=== PATIENT | female | born 1960 | race Caucasian/White ===

== ENCOUNTER 2016-12-12 19:03 | Inpatient (IN) | payer MEDICARE, OTHER ==
[~2016-12-12] VITALS: Ht 160 cm; Wt 79.4 kg
[2016-12-12] MEDS ORDERED: MELO-105 PO (20:00)
[2016-12-12] MEDS ORDERED: CARI250T9 PO (20:00)
[2016-12-12] MEDS ORDERED: ASPI81TA31 PO (20:00)
[2016-12-12] MEDS ORDERED: ATOR40TA PO (20:00)
--- NOTE | 2016-12-13 02:24 | NUR ---
RECEIVED A 55 YR OLD FROM [facility] WITH ADMITTING DIAGNOSIS OF INTRACRANIAL INFARCT. HAS HISTORY OF HYPERLIPIDEMIA, CVA WITH LEFT SIDE WEAKNESS, CAD AND CHRONIC BACK PAINS. AAOX4 COLE'S BUT WITH LEFT SIDE WEAKNESS. LEFT UPPER /LEFT LOWER EXTREMITY WEAK. LUNGS CLEAR. AMBULATE TO THE BATHROOM WITH ASSISTANCE. BM NOTED THIS SHIFT. VITAL SIGNS TAKEN AND RECORDED. BP 132/85 HR 79 RESP 18 TEMP 97.6 PULSE OX 945% RA. SKIN INTACT. DENIES ANY PAIN NOR ANY DISCOMFORT. FALL RISK. SEEN BY DR. POTTER. WILL MONITOR PATIENT. VOIDING WELL.
--- NOTE | 2016-12-13 07:00 | NUR ---
SBAR shift report received. Pt. assessed with no acute distress observed at this time. Left side lower and upper extremity weakness noted. Fall and aspiration precautions implemented. Call light within reach. Will continue to monitor.
[2016-12-13 07:44] LABS: BASOPHILS % (AUTO) 0.4 % (0.0-2.0); EOSINOPHILS # (AUTO) 0.2 K/uL (0.0-0.7); EOSINOPHILS % (AUTO) 1.8 % (0.0-7.0); HEMATOCRIT 39.5 % (37-47); HEMOGLOBIN 12.9 G/DL (12.0-16.0); LYMPHOCYTES # (AUTO) 3.1 K/UL (0.8-4.8); LYMPHOCYTES % (AUTO) 34.7 % (20.5-51.5); MEAN CORPUSCULAR HEMOGLOBIN 29.2 UUG (27.0-31.0); MEAN CORPUSCULAR HGB CONC 33 g/dL (32.0-37.0); MONOCYTES # (AUTO) 0.8 K/UL (0.1-1.30); MONOCYTES % (AUTO) 8.4 % (0.0-11.0); NEUTROPHILS # (AUTO) 4.8 K/UL (1.8-8.9); NEUTROPHILS % (AUTO) 54.7 % (38.5-71.5); PLATELET COUNT (AUTO) 212 K/UL (150-450); RED BLOOD CELL COUNT(AUTO) 4.43 MIL/UL (4.2-5.4); WHITE BLOOD COUNT (AUTO) 8.9 K/UL (4.0-11.2)
[2016-12-13 08:02] LABS: THYROID STIMULATING HORMONE 6.254 mIU/mL (0.358-3.740)
[2016-12-13 08:16] LABS: BILIRUBIN,TOTAL 0.4 mg/dL (0.2-1.0); CREATININE 0.9 mg/dL (0.6-1.3); MAGNESIUM 2.1 mg/dL (1.8-2.4); PHOSPHOROUS 5.1 mg/dL (2.5-4.9); POTASSIUM 4.4 mmol/L (3.5-5.1); TOTAL PROTEIN, SERUM 6.8 g/dL (6.4-8.2)
[2016-12-13 08:22] VITALS: BP 121/76
--- NOTE | 2016-12-13 18:39 | NUR ---
Pt. is alert, awake, and oriented visiting with family at the bedside. Pt has been compliant with both therapies and medication administration during this shift. A prophylaxis order for Levonox to begin tomorrow morning at 0900 hrs has been placed in the EMAR from Dr. Turner. V/S stable, skin intact with 2 bruises noted on left hip from fall while staying at [facility]. No distress noted. Clear breath sounds on RA. No change in NIH scale. Fall and aspiration precautions in place. Call light within reach. Will continue to monitor and endorse details to night staff.
[2016-12-13 20:51] VITALS: BP 133/66
--- NOTE | 2016-12-14 05:19 | NUR ---
AAOX4 OOB TO THE BR WITH WALKER. VOIDING WELL. COMPLIANT WITH MEDS. DENIES ANY PAIN NOR ANY DISCOMFORT. VITAL SIGNS STABLE, WILL MONITOR PATIENT. NEEDS ATTENDED.
--- NOTE | 2016-12-14 07:10 | NUR ---
While receiving report Pt stated difficulty breathing. Pt sat up in high fowlers position, assessed, V/S taken BP 111/72, 71, 93% O2 RA, clear lung sounds BL, pain described as a 2-3/10 non-radiating, dull pain. Pt states having had this type of pain before and it resolving on its own. Pt placed on 2L O2 NC once applied, v/s reassessed to be 99% o2 sat. 108/64, and hr 68. Pt remained sitting up right, with no change in LOC, communication, or appearance. notified. Will continue to monitor.
--- NOTE | 2016-12-14 07:50 | NUR ---
Pt. reassessed v/s 108/64, 68 hr, 99% o2 on 2L NC. Pt states previous pain subsiding, and ease of breathing returned. Pt sitting up right requesting assistance to use mouth wash in order to prepare for breakfast. Dr. Turner contacted, ordered CXR, EKG, CBC, CMP, Mg, Phosphorus, and Troponin labs to be done. Call light within reach, will continue to monitor progress.
[2016-12-14 08:50] VITALS: BP 105/70
[2016-12-14 09:46] LABS: BASOPHILS % (AUTO) 0.3 % (0.0-2.0); EOSINOPHILS # (AUTO) 0.2 K/uL (0.0-0.7); EOSINOPHILS % (AUTO) 2.1 % (0.0-7.0); HEMATOCRIT 38.9 % (37-47); HEMOGLOBIN 12.7 G/DL (12.0-16.0); LYMPHOCYTES # (AUTO) 2.7 K/UL (0.8-4.8); LYMPHOCYTES % (AUTO) 33.2 % (20.5-51.5); MEAN CORPUSCULAR HEMOGLOBIN 28.9 UUG (27.0-31.0); MEAN CORPUSCULAR HGB CONC 33 g/dL (32.0-37.0); MEAN CORPUSCULAR VOLUME 88.6 FL (81.0-99.0); MONOCYTES # (AUTO) 0.5 K/UL (0.1-1.30); MONOCYTES % (AUTO) 6.6 % (0.0-11.0); NEUTROPHILS # (AUTO) 4.8 K/UL (1.8-8.9); NEUTROPHILS % (AUTO) 57.8 % (38.5-71.5); PLATELET COUNT (AUTO) 192 K/UL (150-450); RED BLOOD CELL COUNT(AUTO) 4.39 MIL/UL (4.2-5.4); WHITE BLOOD COUNT (AUTO) 8.2 K/UL (4.0-11.2)
[2016-12-14 09:47] LABS: BILIRUBIN,TOTAL 0.4 mg/dL (0.2-1.0); CREATININE 0.9 mg/dL (0.6-1.3); PHOSPHOROUS 4.4 mg/dL (2.5-4.9); TOTAL PROTEIN, SERUM 6.7 g/dL (6.4-8.2)
--- NOTE | 2016-12-14 17:00 | NUR ---
Pt. has remained free from pain and any acute distress throughout this shift. V/s currently reassessed to read BP 105/67, pulse 74, 02 sat. on 2L NC 99%. No complaints of dizziness or difficulty breathing. Switched NC to O2 mask per pt request. Will continue to monitor.
--- NOTE | 2016-12-14 18:57 | NUR ---
Pt assisted to restroom, extended NC applied for ambulation. Pt agreed to keep extended NC on r/t BRP. No apparent distress noted at this time. Call light within reach. All fall precautions in place. Will endorse pt condition and details to oncoming database coordinator.
--- NOTE | 2016-12-14 19:30 | NUR ---
RECEIVED PATIENT LAYING COMFORTABLY IN BED. NO ACUTE DISTRESS NOTED. NO C/O SOB OR CHEST PAIN. PATIENT IS ALERT AND ORIENTED X 4. BILATERAL EYES BRISK PERRLA +2. NOTED LAZY EYE ON THE LEFT EYE. RIGHT EYE CATARACT SURGERY 5-6 YEARS AGO. SLIGHTLY SLURRED SPEECH. ON O2 2L NC. SKIN CHECK, NOTED BRUISING ON THE RIGHT LOWER ABDOMEN. NOTED LEFT SIDED WEAKNESS. PEDAL PULSE PRESENT AND STRONG. WALKER AT BEDSIDE. INSTRUCTED PATIENT TO USE CALL LIGHT WHEN IN NEED OF ASSISTANCE. VERBALIZED UNDERSTANDING. SAFETY INITIATED. CALL LIGHT WITHIN REACH. WILL CONTINUE TO MONITOR.
[2016-12-14 19:53] VITALS: BP 104/68
--- NOTE | 2016-12-15 06:26 | NUR ---
PATIENT SLEPT INTERMITTENTLY T/O THE NIGHT. NO ACUTE DISTRESS NOTED. NO C/O PAIN, SOB OR CHEST PAIN. PATIENT 02 2L NC. ASSISTED PATIENT TWICE TO THE BATHROOM, TOLERATED WELL. SAFETY AND COMFORT MAINTAINED T/O SHIFT. ALL MEDS GIVEN ORDERED. ALL NEEDS MET.
[2016-12-15 07:10] VITALS: BP 122/70
--- NOTE | 2016-12-15 07:45 | NUR ---
Pt report received. Pt assisted to bathroom x1 assist with walker as well. Pt stated being sad about dx and slow, unpredictable progress. All safety and comfort measures applied. Returned to bed, call light within reach. Will continue to monitor.
--- NOTE | 2016-12-15 10:43 | NUR ---
Pt. displays no s/s of distress this shift. Tolerated well exercise activities instructed with OT and PT this morning. O2 sat upon returning from therapies reads 99%, so 2L NC decreased to 1L NC. Will continue to monitor. Stroke educations discussed with Pt and handout teaching material provided at bedside. drug safety coordinator Sunni visited with Pt for consult. Pt requested to rest at this time. All safety and comfort needs met.
--- NOTE | 2016-12-15 19:06 | NUR ---
Pt continues to show no s/s of any distress on this shift. Sleeping comfortably with 2L O2 via NC. Call light within reach. Will continue to monitor and endorse status to grain trimmer.
--- NOTE | 2016-12-15 20:00 | NUR ---
Received patient AAOx4. OOB to chair when received.with O2 @1L via nasal cannula. Vital signs taken and recorded. BP 116/63 HR 62 Resp 18 Temp 97.9 pulse Ox 94%. Needs attended. Voiding without any difficulty. Tolerated po meds well. Will monitor patient. Assisted back to bed. Fall precautions maintained. Bed alarm on. No acute distress noted. Call cruz within reach.
[2016-12-15 20:25] VITALS: BP 116/63
--- NOTE | 2016-12-16 06:02 | NUR ---
QUIET NIGHT. SLEPT WELL. NO ACUTE DISTRESS NOTED. OOB TO THE BR WITH STANDBY ASSIST. VOIDING WELL. DENIES ANY PAIN NOR ANY DISCOMFORT.
--- NOTE | 2016-12-16 07:42 | NUR ---
REPORT RECEIVED FROM TEMPERATURE REGULATOR NURSE, PATIENT NOTED RESTING IN BED WITH TOWEL ON FOREHEAD, COMPLAINTS OF HEADACHE, NO SIGNS OF DISTRESS NOTED, CALL LIGHT IN REACH, BED LOCKED AND IN LOWEST POSITION
[2016-12-16 08:13] VITALS: BP 112/69
--- NOTE | 2016-12-16 19:21 | NUR ---
TWO BOTTLES OF WINE REMOVED FROM PATIENTS ROOM AND PLACED IN LOCKED MEDICATION ROOM. NO COMPLAINTS OF PAIN AT THIS TIME, NO SIGNS OF DISTRESS, FAMILY VISITING PATIENT AT THIS TIME, SBAR GIVEN TO CAN CLEANER NURSE
--- NOTE | 2016-12-16 20:00 | NUR ---
AAOX4. KELSEY'S AMBULATES TO THE BR WITH WALKER . VOIDING WITHOUT DIFFICULTY. FAMILY AT BEDSIDE. PATIENT'S BIRTHDAY TODAY. IN GOOD SPIRITS.NEEDS ATTENDED. DENIES ANY PAIN AT THIS TIME.
[2016-12-16 20:39] VITALS: BP 128/72
--- NOTE | 2016-12-17 06:01 | NUR ---
oob to the bathroom with walker. voiding well. no BM noted this shift. kept comfortable. sleep at long intervals. no complaints so far. Tolerated po meds well.
[2016-12-17 07:40] VITALS: BP 102/55
--- NOTE | 2016-12-17 13:51 | NUR ---
Interdisciplinary Rehab Summary
[2016-12-17 15:39] LABS: *BILIRUBIN,URIN NEGATIVE (NEGATIVE); *BLOOD, URINE NEGATIVE (NEGATIVE); *COLOR,URINE YELLOW (YELLOW); *KETONES,URINE NEGATIVE (NEGATIVE); *PROTEIN,URINE NEGATIVE (NEGATIVE); *UROBILINOGEN,URINE 0.2 E.U./dl (NORMAL); LEUKOCYTE ESTERASE ,URINE NEGATIVE (NEGATIVE); NITRITE, URINE NEGATIVE (NEGATIVE); UGLUCOSE NEGATIVE (NEGATIVE)
[2016-12-17 16:05] LABS: *CLARITY,URINE SLIGHTLY HAZY (CLEAR)
[2016-12-17 16:08] LABS: BACTERIA,URINE MANY /HPF (NONE SEEN); SQUAMOUS EPITHELIAL CELL,UR FEW /HPF (NONE SEEN)
--- NOTE | 2016-12-17 18:54 | NUR ---
PATIENT SITTING UP IN BED WITH FAMILY AT BED SIDE, NO COMPLAINTS OF PAIN NOTED, NO SIGNS OF DISTRESS, CALL LIGHT IN REACH, BED LOCKED AND IN LOWEST POSITION
--- NOTE | 2016-12-17 19:53 | NUR ---
Received pt on bed alert, oriented x3. Family at bedside during this time. Able to make needs known. No acute distress noted. No complaints of pain or discomfort. No SOB. On O2 2L via nasal cannula. Vital signs stable, BP 105/61, HR 65, RR 18, temp 98.4, O2 sat 93%. Fall precautions observed. Bed alarm on. Call light within reach. Encouraged to verbalize needs and concerns. All needs anticipated.
[2016-12-17 20:07] VITALS: BP 105/61
--- NOTE | 2016-12-18 05:44 | NUR ---
Pt slept comfortably throughout the shift. Assisted to the bathroom x2, remains free of falls. No complaints of pain. No episodes of desaturation. Call light within reach. All needs attended.
--- NOTE | 2016-12-18 07:50 | NUR ---
Received patient awake alert and oriented. Assisted patient to bathroom. Morning care done. No complaints of pain or discomfort. Encouraged to continue O2 at 2lmp but patient said she will after her breakfast.
[2016-12-18 08:48] VITALS: BP 108/67
--- NOTE | 2016-12-18 14:00 | NUR ---
Patient resting in bed with family at bed side. On O2 at 2LPM. Instructed and demonstrated use of incentive spirometer.
--- NOTE | 2016-12-18 19:40 | NUR ---
Received pt on bed asleep. Breathing even and unlabored with normal respirations. No apparent distress noted. Call light within reach. Safety precautions observed. Will continue to monitor.
--- NOTE | 2016-12-18 20:30 | NUR ---
Pt. resting in bed comfortably. All due meds given as ordered and well tolerated. Vital signs stable, BP 111/69, HR 72, RR 20, temp 98.1, o2 sat 94%. On o2 2LPM. No signs of distress noted. Will continue to monitor.
[2016-12-18 21:31] VITALS: BP 111/69
--- NOTE | 2016-12-19 05:51 | NUR ---
Slept well throughout the shift. No s/s of distress noted. Still on o2 2LPM. No SOB. Assisted to the bathroom x3. Safety precautions observed. All needs met.
[2016-12-19 08:37] VITALS: BP 107/66
--- NOTE | 2016-12-19 11:52 | NUR ---
PT SEEN ON ROUNDING. VITALS STABLE. PT GIVEN SHOTS AND MEDICATION. NO SIGNS OF INFECTION ON SITES. PT ASSISTED TO THE BATHROOM SUPERVISION ON FIMS SCORE. PT O2 SAT WNL AND WILL CONTINUE TO MONITOR.
--- NOTE | 2016-12-19 19:44 | NUR ---
pt monitored for acute distress throughout shift. none noted. o2 sat monitored and continued to be wnl. pt seen by family member who smelled like alcohol. security noted. no new injuries. pt seen by md and recommended vitamin d supplements. pt assisted as needed. no complications noted. will endorse new orders to career development facilitator nurse.
--- NOTE | 2016-12-19 20:00 | NUR ---
Received pt on bed resting comfortably. No complaints of pain or discomfort during this time. No shortness of breath noted, however, o2 sat 87% RA. Pt was non compliant with oxygen therapy, explained risk and benefits. Put on on o2 2LPM, o2 sat increased to 95%. No acute distress noted. Vital signs stable, BP 113/65, HR 69, RR 18, Temp 97.5. Call light within reach. Safety precautions observed. All needs attended. Will continue to monitor.
[2016-12-20 03:56] VITALS: BP 113/65
--- NOTE | 2016-12-20 06:10 | NUR ---
Pt slept comfortably during the shift. No s/s of distress. No SOB noted. On o2 2 LPM. All due meds given as ordered and well tolerated. Kept clean, dry and comfortable. All needs attended. Will continue to monitor.
[2016-12-20 08:00] VITALS: BP 116/62
--- NOTE | 2016-12-20 14:37 | NUR ---
Received patient awake, alert and orients. With O2 at 2Lmp. No SOB. No complaints of pain/ discomfort. Not in any form of distress. Call light within reach.
--- NOTE | 2016-12-20 14:47 | NUR ---
With at bed side. No other discomforts noted. Bed in locked position. Encouraged to call for needs. Call light accessible.
--- NOTE | 2016-12-20 19:30 | NUR ---
PT ALERT AND ORIENTED IN BED. NO DISTRESS NOTED. O2 SAT WNL, O2 2L NC. COMPLIANT WITH NURSING CARE. NO PAIN NOTED AT THIS TIME. SAFETY MAINTAINED. CALL LIGHT WITHIN REACH. WILL CONTINUE TO MONITOR.
[2016-12-20 20:00] VITALS: BP 96/67
--- NOTE | 2016-12-21 06:48 | NUR ---
PT RESTING IN BED. NO DISTRESS NOTED. COMPLIANT WITH NURSING CARE AND MEDICATIONS. NO SIGNIFICANT CHANGES THROUGHOUT THE NIGHT. SAFETY MAINTAINED. CALL LIGHT WITHIN REACH.
[2016-12-21 11:52] VITALS: BP 107/71
[2016-12-21 20:52] VITALS: BP 103/63
--- NOTE | 2016-12-21 21:01 | NUR ---
OOB TO THE BR WITH WALKER. VOIDING WELL.NO ACUTE DISTRESS NOTED. DENIES ANY PAIN NOR ANY DISCOMFORT. WILL MONITOR PATIENT. VSS. O2 1L VIA NASAL CANNULA ON AT NIGHT, PULSE OX 92%
--- NOTE | 2016-12-22 06:42 | NUR ---
Quiet night. Sleeping on and off at short intervals.Ambulates to the BR with walker. Voiding without any difficulty. Denies any pain nor any discomfort. O2 @1L via nasal cannula through humidified air. pulse ox 92%Will monitor patient Needs attended.
--- NOTE | 2016-12-22 13:25 | NUR ---
DAILY NOTE OUT ON PASS TO THE NAIL [facility]ON TO GET HER INGROWN TOENAIL REMOVED. APPROVED PT AND OUT TOGETHER. SHE IS EXPECTED BACK BY 1700. OUT ON PASS FORMS SIGNED.
--- NOTE | 2016-12-22 16:00 | NUR ---
DAILY NOTED RETURNED FROM HER APPT FOR GETTING THE INGROWN TOE NAIL REMOVED. IN ACUTE NO DISTRESS VSS 112/60-88-20 92% ON ROOM AIR. STATES SHE FEELS FINE IN BED RESTING NOW READING
[2016-12-22 19:00] VITALS: BP 112/67
--- NOTE | 2016-12-22 19:00 | NUR ---
RECEIVED PATIENT FROM DAY SHIFT NURSE. SHIFT REPORT GIVEN AT BEDSIDE. FAMILY AT BEDSIDE. PATIENT A/O WITH NO SIGNS OF PAIN OR DISCOMFORT. PERTINENT ASSESSMENTS DONE. WILL CONTINUE TO MONITOR PATIENT THROUGH OUT SHIFT.
--- NOTE | 2016-12-23 06:16 | NUR ---
PATIENT SLEPT INTERMITTENTLY THROUGH OUT SHIFT WITH NO SIGNS OF PAIN OR DISCOMFORT. ALL MEDICATIONS ADMINISTERED ORDERED. ALL NEEDS ATTENDED. SHIFT REPORT TO BE GIVEN TO DAY SHIFT NURSE.
--- NOTE | 2016-12-23 08:00 | NUR ---
Received patient asleep, non-labored breathing. Call light within reach. Not in apparent distress.
--- NOTE | 2016-12-23 09:00 | NUR ---
Up with physical therapy. Denies any pain. On room air with O2 sat from 90-92 in room air. Tolerated therapy well
--- NOTE | 2016-12-23 16:04 | NUR ---
Patient showered with minimum assistance. With relative at bedside
--- NOTE | 2016-12-23 19:30 | NUR ---
Received patient laying in bed. Alert and verbally responsive. Able to make needs known. Denies any pain and discomfort. No acute distress. No SOB. On RA at this time. Tolerating well. Kept clean and dry. All needs attended to promptly. Call light within reach. Will continue to monitor.
[2016-12-23 20:00] VITALS: BP 102/68
--- NOTE | 2016-12-24 06:40 | NUR ---
Patient is awake at this time. No c/o pain and discomfort. No acute distress. No SOB. Patient slept intermittently throughout the night. All needs attended to promptly. Call light within reach. Will continue to monitor.
--- NOTE | 2016-12-24 07:41 | NUR ---
Patient noted awake, alert and oriented with no s/sx of distress or any discomforts at this time. No SOB noted. Call light within reach. All needs were attended and anticipated. Encouraged patient to use call light whenever assistance is needed. Will continue to monitor.
--- NOTE | 2016-12-24 09:09 | NUR ---
Patient awake, alert and oriented with no s/sx of distress or discomforts. Patient currently ambulating with physical therapy with no SOB. All medications were given, all tolerated well. Will continue to monitor.
--- NOTE | 2016-12-24 14:38 | NUR ---
Interdisciplinary Team Conference Summary
--- NOTE | 2016-12-24 17:00 | NUR ---
Patient awake, alert sitting on the bed with no s/sx of SOB or distress noted. All needs attended and anticipated. Assisted the patient to ambulate to go to the bathroom to urinate without difficulty. Encouraged patient to use the call light whenever assistance is needed.
--- NOTE | 2016-12-24 19:00 | NUR ---
Patient asleep lying on bed on a semi-payne's position with no s/sx of distress or discomforts or SOB. Call light within reach. Endorsed to incoming shift.
--- NOTE | 2016-12-24 19:25 | NUR ---
Received patient laying in bed. Alert and verbally responsive. Able to make needs known. No c/o pain and discomfort. No acute distress. No SOB. Kept clean and dry. All needs attended to promptly. Call light within reach. Will continue to monitor.
[2016-12-24 20:00] VITALS: BP 115/67
--- NOTE | 2016-12-25 06:03 | NUR ---
Patient is awake watching TV at this time. Slept intermittently throughout the night. Alert and verbally responsive. Able to make needs known. Ambulates to BR with walker. No c/o pain and discomfort. No acute distress. Kept clean and dry. 7am med given. All needs attended to promptly. Call light within reach. Will continue to monitor.
--- NOTE | 2016-12-25 07:03 | NUR ---
Received patient asleep, lying on bed on a side lying position in a comfortable position with call light within reach. Patient easily arousable. Responsive to verbal and tactile stimuli. All needs were attended and anticipated. Encouraged patient to use call light whenever assistance is needed. Will continue to monitor closely.
--- NOTE | 2016-12-25 09:00 | NUR ---
Patient awake lying on bed on a semi payne's position watching television with no s/sx of distress or SOB noted. All due medications were given, tolerated well. Patient stated that she has an on and off pain on her left lower quadrant in her abdomen. Assessed patient's abdominal area, noted normoactive bowel sounds, per patient she is able to pass flatus and bowel movement without difficulty. Patient rated her abdominal pain in left lower quadrant 2 out of 10. No swelling, redness on left lower abdomen. Called Dr. Pipe Pierson and notified regarding left lower abdominal pain with no new order at this time. Patient made aware.Will continue to monitor patient closely.
--- NOTE | 2016-12-25 12:25 | NUR ---
Patient awake, alert sitting on bed. Patient verbalized she is very excited to go home. patient went for physical therapy in stable condition. Will continue to monitor patient
--- NOTE | 2016-12-25 13:24 | NUR ---
Received discharge to home order from Dr. Rolon with home health for follow- up. Order noted and carried out. Patient notified and was very appreciative of the care.
--- NOTE | 2016-12-25 14:45 | NUR ---
Patient was discharged home with mother in stable condition. No signs of distress or discomforts. All medications and home instructions were provided by pharmacist. patient and mother verbalized understanding. All belongings complete. No missing items. Patient was accompanied to private vehicle via wheelchair without difficulty.
== END 2016-12-25 14:45 | disposition home health service (06) | DRG 57 ==
PROVIDERS: ADMIT Physical Medicine & Rehabilitation Pain Medicine; ATTEND Physical Medicine & Rehabilitation Pain Medicine
DX: G81.94 Hemiplegia, unspecified affecting left nondominant side (principal); E55.9 Vitamin D deficiency, unspecified; E03.9 Hypothyroidism, unspecified; I25.10 Atherosclerotic heart disease of native coronary artery without angina pectoris; R26.81 Unsteadiness on feet; E66.9 Obesity, unspecified; Z68.31 Body mass index [BMI] 31.0-31.9, adult; E78.5 Hyperlipidemia, unspecified; I69.392 Facial weakness following cerebral infarction; E11.9 Type 2 diabetes mellitus without complications
CPT/HCPCS: 36415; 70030-TC; 71010; 82306; 83735; 84100; 84443; 85025; 92507; 92523; 93005; 93307; 97110; 97112; 97116; 97165; 97530; 97535; J1650; J3420